=== PATIENT | female | born 1980 | race Caucasian/White ===

== ENCOUNTER 2019-05-31 01:41 | Emergency (ER) | payer OTHER ==
[~2019-05-31] VITALS: Ht 160 cm; Wt 96.6 kg
[2019-05-31 01:56] VITALS: Ht 160 cm; Wt 96.6 kg
[2019-05-31 05:05] VITALS: BP 124/76
== END 2019-05-31 05:05 | disposition home or self-care (01) ==
LOC: ED 01:41
DX: R21 Rash and other nonspecific skin eruption (principal); Z98.890 Other specified postprocedural states; Z90.89 Acquired absence of other organs